=== PATIENT | female | born 1990 | race Caucasian/White ===

== ENCOUNTER → 2016-04-20 | Outpatient (CLI) | payer MEDICARE, MEDICAID ==
[~2016-04-20] MED LIST: TRAZ50TA2 PO; effexor xr PO
--- NOTE | 2016-04-20 21:36 | REP ---
PELVIC ULTRASOUND, 04/20/2016. Comparison: 04/16/2011. Clinical history: Ovarian cyst by history. Transabdominal imaging performed. The patient declined endovaginal probe at this time. On the transabdominal images, the uterus is anteverted. Endometrial stripe appears somewhat thickened, but is homogeneous and has a thickness of 20.8 mm. No fluid in the endometrial cavity or endocervical canal. Right ovary is 3.6 x 2.0 x 3.1 cm with resistive index of 0.48 and normal flow and Doppler waveform, no torsion. The left ovary is 6.1 x 5 x 3.2 cm and shows a 4.6 x 3.1 x 2.9 cm cyst. No adjacent free fluid in the pelvis. Doppler in the left ovary shows resistive index 0.46. Impression: 1. Left ovarian cyst 4.6 x 2.9 x 3.1 cm with both ovaries otherwise unremarkable and with normal blood flow, no torsion. 2. Endometrial stripe thickened up to 20.8 mm, but homogeneous. No uterine mass or contour abnormality. No free fluid. Signed by Ganga Lucas MD 04/21/2016 01:16 P
== END ==
LOC: M RAD 16:45
PROVIDERS: ATTEND Nurse Practitioner Adult Health
DX: N83.209 Unspecified ovarian cyst, unspecified side (principal)

== ENCOUNTER 2016-06-10 01:40 | Emergency (ER) | payer MEDICARE, MEDICAID ==
[~2016-06-10] VITALS: Ht 160 cm; Wt 136.1 kg
[2016-06-10 01:49] VITALS: BP 139/92
[2016-06-10] MEDS ORDERED: IBUP-1114 PO (01:55)
[2016-06-10] MEDS ORDERED: ALEV220C2 PO (01:56)
[2016-06-10] MEDS ORDERED: KETO10TAB PO (06:12)
[2016-06-10] MEDS ORDERED: CLIN1CAP5 PO (06:12)
[2016-06-10] MEDS ORDERED: KETOROLAC 60 MG/2 ML VIAL (J1885) IM ONE (06:15)
[2016-06-10] MEDS ORDERED: KETOROLAC 30 MG/ML VIAL (J1885) As Ordered ONE (06:15)
== END 2016-06-10 06:37 | disposition home or self-care (01) ==
LOC: M ED 03:27
DX: K02.9 Dental caries, unspecified (principal); K08.89 Other specified disorders of teeth and supporting structures; Z88.0 Allergy status to penicillin; Z88.8 Allergy status to other drugs, medicaments and biological substances; Z88.2 Allergy status to sulfonamides
CPT/HCPCS: 96372; 99281; J1885

== ENCOUNTER 2016-09-19 20:04 | Emergency (ER) | payer MEDICARE, MEDICAID ==
[~2016-09-19] VITALS: Ht 157.5 cm; Wt 127.3 kg
[~2016-09-19 20:04] MED LIST changes: +ALEV220C2 PO; +CLIN150C14 PO; +IBUP-1114 PO; +KETO10TAB PO
[2016-09-19 23:42] LABS: MEAN CORPUSCULAR HEMOGLOBIN 29.1 pg (27.0-33.0); MEAN CORPUSCULAR HGB CONC 33.7 g/dl (32.0-36.5); MEAN CORPUSCULAR VOLUME 86.4 fl (80.0-96.0); RED CELL DISTRIBUTION WIDTH 12.9 % (11.5-14.5); WHITE BLOOD COUNT 15.4 K/mm3 (4.0-10.0)
[2016-09-20 00:06] LABS: CONTROL LINE HCG INT CTR LINE PRESENT
--- NOTE | 2016-09-20 01:50 | REPUSA ---
CLINICAL HISTORY: Pelvic pain. TECHNIQUE: Realtime sonographic images were obtained in multiple projections via TA approach. COMMENTS: The uterus is anteverted measuring 9.7x5x6 cm. The endometrial echo pattern is thickened measuring 27 .8 mm. There is no evidence of free fluid within the pelvic cul-de-sac. The right ovary measures 3.3x2x1.9 cm and the left ovary measures 6.1x4.6x6.1 cm with a 4.4 x 3.2 x3. 6 cm cyst.. Both ovaries are free of solid or cystic mass. There is no evidence for abnormal vascularity. IMPRESSION: Thickened endometrium. Left ovarian cyst. No changes noted since the prior exam on 04/21/2016. Thank you for your kind referral of this patient. ADDENDUM: CLINICAL HISTORY: Pelvic pain. TECHNIQUE: Realtime sonographic images were obtained in multiple projections via TA approach. COMMENTS: The uterus is anteverted measuring 9.7x5x6 cm. The endometrial echo pattern is thickened measuring 27.8 mm. There is no evidence of free fluid within the pelvic cul-de-sac. The right ovary measures 3.3x2x1.9 cm and the left ovary measures 6.1x4.6x6.1 cm with a 4.4 x 3.2 x3.6 cm cyst.. Both ovaries are free of solid mass. There is no evidence for abnormal vascularity. IMPRESSION: Thickened endometrium. Left ovarian cyst. No changes noted since the prior exam on 04/21/2016. Thank you for your kind referral of this patient. 1
[2016-09-20] MEDS ORDERED: LEVO0.1T PO (01:53)
[2016-09-20] MEDS ORDERED: NORCOTAB PO (01:53)
[2016-09-20] MEDS ORDERED: NORCO 5/325MG TABLET (BULK FOR ED) PO ONE (02:00)
[2016-09-20 02:26] VITALS: BP 154/72
--- NOTE | 2016-09-21 08:46 | ED PDOC ---
Post-Departure Follow-Up dr huerta and maritza reynolds faxed formal report of pelvis us for fu. Emmett Trujillo MD Sep 21, 2016 08:46
== END 2016-09-20 02:29 | disposition home or self-care (01) ==
LOC: M ED 20:04
DX: N83.292 Other ovarian cyst, left side (principal); N93.8 Other specified abnormal uterine and vaginal bleeding; Z88.0 Allergy status to penicillin; Z88.2 Allergy status to sulfonamides; Z88.8 Allergy status to other drugs, medicaments and biological substances; Z88.1 Allergy status to other antibiotic agents

== ENCOUNTER → 2017-03-04 | Outpatient (CLI) | payer MEDICARE, MEDICAID ==
[2017-03-04 18:55] LABS: BASO % 0.2 % (0.0-1.0); EOS # 0.1 10^3/uL (0.0-0.50); EOS % 1.3 % (0.0-3.0); HEMATOCRIT 41.3 % (36.0-47.0); HEMOGLOBIN 13.8 g/dl (12.0-16.0); IMMATURE GRANULOCYTE % 0.4 % (0-0); LYMPH # 1.8 10^3/uL (1.5-6.5); MEAN CORPUSCULAR HEMOGLOBIN 28.2 pg (27.0-33.0); MEAN CORPUSCULAR HGB CONC 33.4 g/dl (32.0-36.5); MEAN CORPUSCULAR VOLUME 84.3 fl (80.0-96.0); MONO # 0.5 10^3/uL (0.0-0.8); NEUTROPHILS # 6.6 10^3/uL (1.8-7.7); NEUTROPHILS % 73.1 % (36.0-66.0); PLATELET COUNT, AUTOMATED 353 10^3/uL (150-450); RED CELL DISTRIBUTION WIDTH 13.8 % (11.5-14.5); WHITE BLOOD COUNT 9.1 10^3/uL (4.0-10.0)
[2017-03-04 19:09] LABS: ESTIMATED AVERAGE GLUCOSE 114 MG/DL (60-110); HEMOGLOBIN A1c 5.6 %
[2017-03-04 19:13] LABS: ALBUMIN 3.6 GM/DL (3.2-5.2); ALKALINE PHOSPHATASE 54 U/L (45-117); ALT/SGPT 43 U/L (12-78); ANION GAP 10 MEQ/L (8-16); AST/SGOT 29 U/L (7-37); BILIRUBIN,TOTAL 0.4 MG/DL (0.2-1.0); BLOOD UREA NITROGEN 14 MG/DL (7-18); CALCIUM LEVEL 8.8 MG/DL (8.5-10.1); CARBON DIOXIDE LEVEL 25 MEQ/L (21-32); CHLORIDE LEVEL 104 MEQ/L (98-107); CHOLESTEROL LEVEL 188 MG/DL (<200); CREATININE FOR GFR 0.77 MG/DL (0.55-1.02); FREE T4 1.21 NG/DL (0.76-1.46); GLOMERULAR FILTRATION RATE > 60.0 (>60); GLUCOSE, FASTING 134 MG/DL (70-105); HDL CHOLESTEROL 39 MG/DL (>40); LDL CHOLESTEROL 95.4 MG/DL (<100); NON-HDL-C 149 MG/DL; SODIUM LEVEL 139 MEQ/L (136-145); TOTAL PROTEIN 7.6 GM/DL (6.4-8.2); TRIGLYCERIDES LEVEL 268 MG/DL (<150)
[2017-03-06 09:00] LABS: TOTAL 25(OH) VITAMIN D 32.9 NG/ML (30.0-100.0)
== END ==
LOC: M WUC 15:18
DX: N93.9 Abnormal uterine and vaginal bleeding, unspecified (principal); E78.1 Pure hyperglyceridemia; E78.00 Pure hypercholesterolemia, unspecified; E55.9 Vitamin D deficiency, unspecified; Z79.899 Other long term (current) drug therapy
CPT/HCPCS: 84443

== ENCOUNTER → 2017-06-16 | Outpatient (CLI) | payer MEDICARE, MEDICAID ==
[2017-06-16 16:43] LABS: FREE T4 1.06 NG/DL (0.76-1.46)
[2017-06-19 12:24] LABS: PROLACTIN 24.7 NG/ML
[2017-06-20 00:08] LABS: DEHYDROEPIANDROSTERONE SULFATE 251.1 ug/dL (84.8-378.0); TESTOSTERONE FREE (DIRECT) 7.7 pg/mL (0.0-4.2)
== END ==
LOC: M WUC 14:18
DX: N92.1 Excessive and frequent menstruation with irregular cycle (principal)
CPT/HCPCS: 84146

== ENCOUNTER → 2017-08-10 | Outpatient (CLI) | payer MEDICARE, MEDICAID ==
[2017-08-10 20:22] LABS: CHOLESTEROL LEVEL 193 MG/DL (<200); CHOLESTEROL RISK RATIO 6.655 (<5); HDL CHOLESTEROL 29 MG/DL (>40); LDL CHOLESTEROL 96.2 MG/DL (<100); NON-HDL-C 164 MG/DL; TRIGLYCERIDES LEVEL 339 MG/DL (<150)
== END ==
LOC: M WUC 16:36
DX: E78.00 Pure hypercholesterolemia, unspecified (principal); Z79.899 Other long term (current) drug therapy
CPT/HCPCS: 80061

== ENCOUNTER → 2018-08-04 | Outpatient (REF) | payer MEDICARE, MEDICAID ==
[~2018-08-04] MED LIST changes: +HYDR-3715 PO; +LEVO0.1T PO
== END ==
LOC: M LAB REF 13:37
PROVIDERS: ATTEND Physician Assistant
DX: J06.9 Acute upper respiratory infection, unspecified (principal)

== ENCOUNTER → 2018-08-06 | Outpatient (REF) ==
[2018-08-06 10:59] LABS: RUBELLA IgG QUALITATIVE IMMUNE (IMMUNE)
[2018-08-07 11:44] LABS: HERPES ZOSTER, VARICELLA IgG <135 index (Immune >165); RUBEOLA IgG ANTIBODY 96.3 AU/mL (Immune >29.9)
== END ==
LOC: M LAB 09:36
PROVIDERS: ATTEND Nurse Practitioner Adult Health
DX: Z00.00 Encounter for general adult medical examination without abnormal findings (principal)

== ENCOUNTER 2018-08-20 23:34 | Emergency (ER) | payer MEDICARE, MEDICAID ==
[~2018-08-20] VITALS: Ht 157.5 cm; Wt 136.4 kg
[2018-08-21] MEDS ORDERED: GI COCKTAIL 50ML BTL(HYOSCYAMINE/MAALOX/LIDOCAINE VISCOUS)(1:3:1) PO ONE (02:00)
[2018-08-21] MEDS ORDERED: dexameTHASONE 4 MG/ML 1ML VIAL (J1100) PO ONE (02:15)
[2018-08-21] MEDS ORDERED: DECA4TAB PO (02:30)
[2018-08-21] MEDS ORDERED: LIDO1SOL8 PO (02:30)
[2018-08-21 02:40] VITALS: BP 140/79
--- NOTE | 2018-08-21 08:35 | REP ---
Clinical: Neck pain and dysphagia. Technique: AP and lateral soft tissue neck radiographs (three total views) Findings: Visualized osseous structures are intact and relatively normal for age without obvious osseous abnormality. The nasopharyngeal, oral pharyngeal and upper tracheal airway remains patent, midline and normal in appearance. The surrounding soft tissues are unremarkable. No subcutaneous emphysema, soft tissue swelling, or radiodense foreign body appreciated. Impression: Normal soft tissue neck radiographs. Electronically Signed by Fabricio Sidhu MD 08/21/2018 06:17 A
== END 2018-08-21 02:42 | disposition home or self-care (01) ==
LOC: M ED 23:34
DX: J03.91 Acute recurrent tonsillitis, unspecified (principal); Z88.0 Allergy status to penicillin; Z88.2 Allergy status to sulfonamides; Z88.1 Allergy status to other antibiotic agents; Z79.3 Long term (current) use of hormonal contraceptives
CPT/HCPCS: 70360; 87880; 99284; J1100

== ENCOUNTER 2018-11-07 05:05 | Emergency (ER) | payer MEDICARE, MEDICAID ==
[~2018-11-07] VITALS: Ht 157.5 cm; Wt 127.3 kg
[~2018-11-07 05:05] MED LIST changes: +DECA4TAB PO; +LIDO1SOL8 PO
[2018-11-07] MEDS ORDERED: CLIN-30 (05:14)
[2018-11-07] MEDS ORDERED: KETOROLAC 60 MG/2 ML VIAL (J1885) IM ONE (06:45)
[2018-11-07 07:44] VITALS: BP 139/93
[2018-11-07] MEDS ORDERED: KETO10TAB PO (07:45)
== END 2018-11-07 08:17 | disposition home or self-care (01) ==
LOC: M ED 05:05
DX: K04.7 Periapical abscess without sinus (principal); K08.89 Other specified disorders of teeth and supporting structures; S02.5XXA Fracture of tooth (traumatic), initial encounter for closed fracture; X58.XXXA Exposure to other specified factors, initial encounter; Y92.9 Unspecified place or not applicable; Y93.9 Activity, unspecified; Y99.9 Unspecified external cause status; Z79.899 Other long term (current) drug therapy; Z88.0 Allergy status to penicillin; Z88.2 Allergy status to sulfonamides; Z88.1 Allergy status to other antibiotic agents; Z88.8 Allergy status to other drugs, medicaments and biological substances
CPT/HCPCS: 96372; 99283; J1885

== ENCOUNTER 2018-12-13 18:32 | Emergency (ER) | payer MEDICAID, MEDICARE, OTHER ==
[~2018-12-13] VITALS: Ht 160 cm; Wt 127.3 kg
[~2018-12-13 18:32] MED LIST changes: +CLIN-30
[2018-12-13] MEDS ORDERED: IBUPROFEN 600 MG TAB PO ONE (20:00)
[2018-12-13] MEDS ORDERED: IBUP-1022 PO (21:11)
[2018-12-13 21:27] VITALS: BP 115/64
--- NOTE | 2018-12-14 03:12 | REP ---
Clinical: Trauma . Technique: Internal rotation, external rotation, and Y view right shoulder . Findings: No acute fracture or dislocation. The acromioclavicular and glenohumeral joints are intact. No periarticular calcifications or degenerative changes are appreciated. Sub acromial space is normal. Surrounding soft tissues are unremarkable. Impression: Normal right shoulder radiographs. Electronically Signed by Fabricio Sidhu MD 12/14/2018 03:03 A
--- NOTE | 2018-12-14 03:14 | REP ---
Clinical: Trauma. Technique: Frontal view of the chest with four views of the right hemithorax. Findings: Frontal view of the chest demonstrates no acute cardiopulmonary process. Multiple views of the right hemithorax demonstrates no obvious acute rib fracture or pathology. Impression: Normal right rib series Electronically Signed by Fabricio Sidhu MD 12/14/2018 03:05 A
== END 2018-12-13 21:28 | disposition home or self-care (01) ==
LOC: M ED 18:32
DX: S40.011A Contusion of right shoulder, initial encounter (principal); W20.8XXA Other cause of strike by thrown, projected or falling object, initial encounter; Y92.238 Other place in hospital as the place of occurrence of the external cause; Y99.0 Civilian activity done for income or pay; Z88.1 Allergy status to other antibiotic agents; Z88.2 Allergy status to sulfonamides; E28.2 Polycystic ovarian syndrome; Z86.011 Personal history of benign neoplasm of the brain

== ENCOUNTER 2019-01-31 21:12 | Emergency (ER) | payer MEDICARE, MEDICAID ==
[~2019-01-31] VITALS: Ht 160 cm; Wt 140.4 kg
[2019-01-31 21:12] VITALS: BP 140/82
[~2019-01-31 21:12] MED LIST changes: +IBUP-1022 PO
[2019-01-31] MEDS ORDERED: NS 1,000 ML IV ONE (21:45)
[2019-01-31] MEDS ORDERED: ACETAMINOPHEN TAB 650MG DOSE (2X325MG) PO ONE (21:45)
[2019-01-31 22:04] LABS: BASO % 0.4 % (0.0-1.0); EOS % 0.6 % (0.0-3.0); HEMATOCRIT 48.6 % (36.0-47.0); HEMOGLOBIN 15.7 g/dl (12.0-15.5); LYMPH # 1.2 10^3/uL (1.5-5.0); LYMPH % 17.8 % (24.0-44.0); MEAN CORPUSCULAR HEMOGLOBIN 28.1 pg (27.0-33.0); MEAN CORPUSCULAR HGB CONC 32.3 g/dl (32.0-36.5); MEAN CORPUSCULAR VOLUME 86.9 fl (80.0-96.0); MONO # 0.8 10^3/uL (0.0-0.8); MONO % 11.7 % (0.0-5.0); NEUTROPHILS # 4.6 10^3/uL (1.5-8.5); NEUTROPHILS % 69.4 % (36.0-66.0); PLATELET COUNT, AUTOMATED 282 10^3/uL (150-450); RED BLOOD COUNT 5.59 10^6/uL (4.00-5.40); WHITE BLOOD COUNT 6.7 10^3/uL (4.0-10.0)
[2019-01-31 22:24] LABS: BLOOD UREA NITROGEN 12 MG/DL (7-18); CALCIUM LEVEL 9.1 MG/DL (8.5-10.1); CARBON DIOXIDE LEVEL 28 MEQ/L (21-32); CHLORIDE LEVEL 104 MEQ/L (98-107); CREATININE FOR GFR 0.92 MG/DL (0.55-1.30); GLOMERULAR FILTRATION RATE > 60.0 (>60); GLUCOSE, FASTING 102 MG/DL (70-100); POTASSIUM SERUM 3.3 MEQ/L (3.5-5.1); SODIUM LEVEL 139 MEQ/L (136-145)
[2019-01-31 22:38] LABS: INFLUENZA A AMPLIFICATION NEGATIVE (NEGATIVE); INFLUENZA B AMPLIFICATION NEGATIVE (NEGATIVE)
[2019-01-31] MEDS: POTASSIUM CHLORIDE 10 MEQ SR TABLET PO ONE (23:20)
[2019-01-31] MEDS ORDERED: IBUPROFEN 600 MG TAB PO ONE (23:30)
--- NOTE | 2019-01-31 23:54 | REPVR ---
PROCEDURE INFORMATION: Exam: XR Chest, 2 Views Exam date and time: 01/31/2019 11:03 PM Age: 28 years old Clinical history: Other: SOB TECHNIQUE: Imaging protocol: XR of the chest Views: 2 views. COMPARISON: CR Ribs uni W-PA CHEST ONLY RIGHT 2018-12-13 20:32 FINDINGS: Limitations: Limited by patient's body habitus. Lungs: No focal airspace consolidation. Pleural space: Unremarkable. No pleural effusion. No pneumothorax. Heart/Mediastinum: Unremarkable. No cardiomegaly. Bones/joints: Unremarkable. IMPRESSION: No focal airspace consolidation. Electronically signed by: Nathaniel Moses On 01/31/2019 23:53:27 PM
[2019-02-01] MEDS: POTASSIUM CHLORIDE 10 MEQ SR TABLET PO ONE (00:05)
== END 2019-02-01 01:23 | disposition home or self-care (01) ==
LOC: M ED 21:12
DX: R50.9 Fever, unspecified (principal); M79.10 Myalgia, unspecified site; Z88.0 Allergy status to penicillin; Z88.2 Allergy status to sulfonamides; Z88.1 Allergy status to other antibiotic agents

== ENCOUNTER 2019-04-25 23:34 | Emergency (ER) | payer MEDICARE, MEDICAID ==
[~2019-04-25] VITALS: Ht 160 cm; Wt 139.1 kg
[~2019-04-25 23:34] MED LIST changes: -LIDO1SOL8 PO; +LIDO2SOL17 PO
[2019-04-26] MEDS ORDERED: BENZONATATE 100 MG CAP PO ONE (00:15)
[2019-04-26] MEDS ORDERED: ANUSOL HC CREAM 30GM TOP STA (00:16)
[2019-04-26] MEDS ORDERED: HYDROCORTISONE 1% CREAM 30 GM TOP ONE (00:30)
[2019-04-26 01:15] LABS: INFLUENZA A AMPLIFICATION NEGATIVE (NEGATIVE); INFLUENZA B AMPLIFICATION NEGATIVE (NEGATIVE)
[2019-04-26] MEDS ORDERED: TESS100C PO (01:20)
[2019-04-26 01:28] VITALS: BP 131/75
--- NOTE | 2019-04-26 07:51 | REP ---
PA and lateral chest: Comparison is 01/31/2019. The lung jiménez are clear. The cardiac size is normal. The lorenzo, mediastinum, and skeletal structures are unremarkable. Impression: Negative PA and lateral chest. There is no interval change. Electronically Signed by Ridge Pulliam MD 04/26/2019 07:42 A
== END 2019-04-26 01:29 | disposition home or self-care (01) ==
LOC: M ED 23:34
DX: R05 Cough (principal); R09.89 Other specified symptoms and signs involving the circulatory and respiratory systems; L29.9 Pruritus, unspecified; Z88.0 Allergy status to penicillin; Z88.2 Allergy status to sulfonamides; Z88.1 Allergy status to other antibiotic agents

== ENCOUNTER 2019-05-16 23:28 | Emergency (ER) | payer MEDICARE, MEDICAID ==
[~2019-05-16] VITALS: Ht 160 cm; Wt 140.9 kg
[~2019-05-16 23:28] MED LIST changes: +TESS100C PO
[2019-05-17] MEDS ORDERED: BENZOCAINE 20% GEL 9GM TUBE (ANBESOL MAX STRENGTH) TOP ONE
[2019-05-17] MEDS ORDERED: CLIN150C14 PO (00:37)
[2019-05-17 00:54] VITALS: BP 137/90
--- NOTE | 2019-05-17 08:02 | REP ---
Mandible series: Four views. History: Lower jaw pain. Comparison soft tissue neck radiographs August 21, 2018. Findings: There is no evidence of mandibular fracture or bony destructive lesion. Impression: Negative radiographs of the mandible. 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 Electronically Signed by Brandin Downs MD 05/17/2019 07:54 A
== END 2019-05-17 00:55 | disposition home or self-care (01) ==
LOC: M ED 23:28
DX: R68.84 Jaw pain (principal); K02.9 Dental caries, unspecified; K08.89 Other specified disorders of teeth and supporting structures; K05.30 Chronic periodontitis, unspecified; S00.83XA Contusion of other part of head, initial encounter; W50.0XXA Accidental hit or strike by another person, initial encounter; Y92.9 Unspecified place or not applicable; Y93.9 Activity, unspecified; Y99.9 Unspecified external cause status; E28.2 Polycystic ovarian syndrome; Z98.818 Other dental procedure status; Z88.0 Allergy status to penicillin; Z88.2 Allergy status to sulfonamides; Z88.1 Allergy status to other antibiotic agents; Z88.8 Allergy status to other drugs, medicaments and biological substances

== ENCOUNTER 2019-10-16 23:37 | Emergency (ER) | payer MEDICARE, MEDICAID ==
[~2019-10-16] VITALS: Ht 160 cm; Wt 138.0 kg
[2019-10-16] MEDS ORDERED: CLIN300C5 (23:47)
[2019-10-16] MEDS ORDERED: IBUP200T45 PO (23:47)
[2019-10-16] MEDS ORDERED: NAPR220C23 PO (23:47)
[2019-10-17] MEDS ORDERED: KETOROLAC 30 MG/ML 1ML VIAL IV ONE (01:15)
[2019-10-17] MEDS ORDERED: ISOVUE-370 76% 100ML VIAL As Ordered ONE (01:16)
[2019-10-17] MEDS ORDERED: KETOROLAC 30 MG/ML 1ML VIAL As Ordered ONE (01:18)
[2019-10-17 01:37] LABS: BASO % 0.5 % (0.0-1.0); EOS # 0.2 10^3/uL (0.0-0.5); EOS % 2.4 % (0.0-3.0); HEMATOCRIT 43.7 % (36.0-47.0); HEMOGLOBIN 14.1 g/dl (12.0-15.5); LYMPH # 2.8 10^3/uL (1.5-5.0); LYMPH % 31.5 % (24.0-44.0); MEAN CORPUSCULAR HGB CONC 32.3 g/dl (32.0-36.5); MEAN CORPUSCULAR VOLUME 86.7 fl (80.0-96.0); MONO # 0.8 10^3/uL (0.0-0.8); MONO % 9.4 % (0.0-5.0); PLATELET COUNT, AUTOMATED 324 10^3/uL (150-450); RED BLOOD COUNT 5.04 10^6/uL (4.00-5.40); WHITE BLOOD COUNT 8.9 10^3/uL (4.0-10.0)
[2019-10-17 01:59] LABS: HCG, SERUM QUALITATIVE NEGATIVE (NEGATIVE)
[2019-10-17 02:03] LABS: ALBUMIN 3.9 GM/DL (3.2-5.2); ALT/SGPT 29 U/L (12-78); BILIRUBIN,DIRECT < 0.1 MG/DL (0.0-0.2); BILIRUBIN,TOTAL 0.2 MG/DL (0.2-1.0); BLOOD UREA NITROGEN 19 MG/DL (7-18); C REACTIVE PROTEIN QUANTITATIV 4.69 MG/DL (0.00-0.30); CALCIUM LEVEL 9.2 MG/DL (8.5-10.1); CARBON DIOXIDE LEVEL 28 MEQ/L (21-32); CHLORIDE LEVEL 103 MEQ/L (98-107); GLOMERULAR FILTRATION RATE > 60.0 (>60); GLUCOSE, FASTING 89 MG/DL (70-100); SODIUM LEVEL 135 MEQ/L (136-145); TOTAL PROTEIN 8.3 GM/DL (6.4-8.2)
[2019-10-17 02:11] LABS: ERYTHROCYTE SEDIMENTATION RATE 15 mm/hr (0-20)
[2019-10-17] MEDS ORDERED: diphenhydrAMINE 50MG/ML VIAL (J1200) IV ONE (02:30)
--- NOTE | 2019-10-17 02:55 | REPVR ---
PROCEDURE INFORMATION: Exam: CT Maxillofacial With Contrast Exam date and time: 10/17/2019 2:20 AM Age: 29 years old Clinical indication: Mass, lump, or swelling; Other: Facial; Patient HX: Known dental issues right; Additional info: Right face swelling TECHNIQUE: Imaging protocol: Computed tomography images of the face with intravenous contrast. Radiation optimization: All CT scans at this facility use at least one of these dose optimization techniques: automated exposure control; mA and/or kV adjustment per patient size (includes targeted exams where dose is matched to clinical indication); or iterative reconstruction. Contrast material: ISO; Contrast volume: 75 ml; Contrast route: INTRAVENOUS (IV); COMPARISON: CR Mandible 05/17/2019 12:00 AM FINDINGS: Orbits: Orbits are normal. Globes are unremarkable. Bones/joints: No acute fracture. Sinuses: Mild right maxillary sinus mucosal thickening inferiorly. Dental: Absence of the crown of tooth # 2 with periodontal disease involving the root. There is a defect extending through the anterior maxilla through the region of tooth # 7. Soft tissues: Slight subcutaneous edema of the right cheek. IMPRESSION: 1. Slight subcutaneous edema of the right cheek. 2. Mild right maxillary sinus disease. 3. Caries and periodontal disease involving tooth # 2 and defect in the anterior maxilla to the right of midline. 4. Otherwise negative CT facial bones. Electronically signed by: Hugo Polo On 10/17/2019 02:55:42 AM
[2019-10-17 03:13] VITALS: BP 158/84
== END 2019-10-17 03:14 | disposition home or self-care (01) ==
LOC: M ED 23:37
DX: K02.9 Dental caries, unspecified (principal); Z88.0 Allergy status to penicillin; Z88.2 Allergy status to sulfonamides; Z88.1 Allergy status to other antibiotic agents
CPT/HCPCS: 70487; 80048; 80076; 83605; 84703; 85025; 85652; 86140; 96374; 96375; 99283; J1200; J1885; Q9967

== ENCOUNTER 2020-05-11 22:47 | Emergency (ER) | payer MEDICAID, MEDICARE, OTHER ==
[~2020-05-11] VITALS: Ht 160 cm; Wt 139.7 kg
[~2020-05-11 22:47] MED LIST changes: -CLIN150C14 PO; +CLIN150C15 PO; +CLIN300C6; +IBUP200T45 PO; +NAPR220C23 PO
[2020-05-12] MEDS ORDERED: RALTEGRAVIR 400 MG TAB (ISENTRESS) PO SCH
[2020-05-12] MEDS ORDERED: TRUVADA 200MG/300MG TABLET PO SCH
[2020-05-12] MEDS ORDERED: EXPOSURE KIT-ADULT 7 DAY SUPPLY PO ONE (00:55)
[2020-05-12 01:17] LABS: BASO # 0.1 10^3/uL (0.0-0.2); BASO % 0.4 % (0.0-1.0); EOS # 0.1 10^3/uL (0.0-0.5); EOS % 1.2 % (0.0-3.0); HEMATOCRIT 43.9 % (36.0-47.0); HEMOGLOBIN 14.2 g/dl (12.0-15.5); LYMPH # 3.8 10^3/uL (1.5-5.0); LYMPH % 33.6 % (24.0-44.0); MEAN CORPUSCULAR HEMOGLOBIN 28.1 pg (27.0-33.0); MEAN CORPUSCULAR HGB CONC 32.3 g/dl (32.0-36.5); MEAN CORPUSCULAR VOLUME 86.8 fl (80.0-96.0); MONO # 0.8 10^3/uL (0.0-0.8); MONO % 6.8 % (2.0-8.0); NEUTROPHILS # 6.5 10^3/uL (1.5-8.5); NEUTROPHILS % 57.7 % (36.0-66.0); PLATELET COUNT, AUTOMATED 350 10^3/uL (150-450); RED BLOOD COUNT 5.06 10^6/uL (4.00-5.40); WHITE BLOOD COUNT 11.3 10^3/uL (4.0-10.0)
[2020-05-12] MEDS ORDERED: TRUVTAB PO (01:26)
[2020-05-12] MEDS ORDERED: RALT40TA PO (01:26)
[2020-05-12 01:48] LABS: HCG, SERUM QUALITATIVE NEGATIVE (NEGATIVE)
[2020-05-12 01:52] LABS: ALBUMIN 3.9 GM/DL (3.2-5.2); ALT/SGPT 26 U/L (12-78); BILIRUBIN,TOTAL 0.2 MG/DL (0.2-1.0); BLOOD UREA NITROGEN 14 MG/DL (7-18); CALCIUM LEVEL 9.4 MG/DL (8.5-10.1); CARBON DIOXIDE LEVEL 29 MEQ/L (21-32); CHLORIDE LEVEL 105 MEQ/L (98-107); CREATININE FOR GFR 0.69 MG/DL (0.55-1.30); GLOMERULAR FILTRATION RATE > 60.0 (>60); GLUCOSE, FASTING 84 MG/DL (70-100); POTASSIUM SERUM 3.8 MEQ/L (3.5-5.1); SODIUM LEVEL 138 MEQ/L (136-145); TOTAL PROTEIN 8.2 GM/DL (6.4-8.2)
[2020-05-12] MEDS ORDERED: TRUVADA 200MG/300MG TABLET PO ONE (02:00)
[2020-05-12] MEDS ORDERED: RALTEGRAVIR 400 MG TAB (ISENTRESS) PO ONE (02:00)
[2020-05-12 02:40] VITALS: BP 160/91
[2020-05-12 10:55] LABS: HEPATITIS B SURFACE ANTIBODY NEGATIVE (POSITIVE)
[2020-05-12 11:05] LABS: HEPATITIS B SURFACE ANTIGEN NEGATIVE (NEGATIVE)
[2020-05-12 11:34] LABS: HEPATITIS C VIRUS ABY INDEX < 0.0 INDEX (<0.8); HIV SCREEN CENTAUR EXPOSED NEGATIVE (NEGATIVE)
== END 2020-05-12 02:42 | disposition home or self-care (01) ==
LOC: M ED 22:47
DX: Z77.21 Contact with and (suspected) exposure to potentially hazardous body fluids (principal); S61.232A Puncture wound without foreign body of right middle finger without damage to nail, initial encounter; W27.3XXA Contact with needle (sewing), initial encounter; Y92.89 Other specified places as the place of occurrence of the external cause; Y93.89 Activity, other specified; Y99.0 Civilian activity done for income or pay; Z88.2 Allergy status to sulfonamides; Z88.0 Allergy status to penicillin; Z88.8 Allergy status to other drugs, medicaments and biological substances

== ENCOUNTER 2020-07-30 02:14 | Emergency (ER) | payer MEDICARE, MEDICAID, OTHER ==
[~2020-07-30] VITALS: Ht 157.5 cm; Wt 143.2 kg
[~2020-07-30 02:14] MED LIST changes: +EMTR1TAB16 PO; +RALT40TA PO
[2020-07-30 02:16] VITALS: BP 132/77
[2020-07-30 04:38] LABS: BASO % 0.4 % (0.0-1.0); EOS # 0.1 10^3/uL (0.0-0.5); EOS % 1.4 % (0.0-3.0); HEMATOCRIT 42.6 % (36.0-47.0); HEMOGLOBIN 13.8 g/dl (12.0-15.5); LYMPH % 30.3 % (24.0-44.0); MEAN CORPUSCULAR HGB CONC 32.4 g/dl (32.0-36.5); MEAN CORPUSCULAR VOLUME 86.6 fl (80.0-96.0); MONO # 0.9 10^3/uL (0.0-0.8); MONO % 9.3 % (2.0-8.0); NEUTROPHILS # 5.8 10^3/uL (1.5-8.5); NEUTROPHILS % 58.2 % (36.0-66.0); PLATELET COUNT, AUTOMATED 303 10^3/uL (150-450); RED BLOOD COUNT 4.92 10^6/uL (4.00-5.40)
[2020-07-30 05:14] LABS: ALBUMIN 3.4 GM/DL (3.2-5.2); ALT/SGPT 27 U/L (12-78); BILIRUBIN,DIRECT 0.1 MG/DL (0.0-0.2); BILIRUBIN,TOTAL 0.2 MG/DL (0.2-1.0); BLOOD UREA NITROGEN 14 MG/DL (7-18); CALCIUM LEVEL 9.2 MG/DL (8.5-10.1); CARBON DIOXIDE LEVEL 27 MEQ/L (21-32); CHLORIDE LEVEL 107 MEQ/L (98-107); CREATININE FOR GFR 0.59 MG/DL (0.55-1.30); GLOMERULAR FILTRATION RATE > 60.0 (>60); GLUCOSE, FASTING 131 MG/DL (70-100); LIPASE 173 U/L (73-393); POTASSIUM SERUM 3.8 MEQ/L (3.5-5.1); SODIUM LEVEL 141 MEQ/L (136-145); TOTAL PROTEIN 7.2 GM/DL (6.4-8.2)
[2020-07-30 05:15] LABS: HCG, SERUM QUALITATIVE NEGATIVE (NEGATIVE)
== END 2020-07-30 05:54 | disposition left against medical advice (07) ==
LOC: M ED 02:14
DX: R11.2 Nausea with vomiting, unspecified (principal); Z88.0 Allergy status to penicillin; Z88.1 Allergy status to other antibiotic agents; Z88.2 Allergy status to sulfonamides; Z88.8 Allergy status to other drugs, medicaments and biological substances

== ENCOUNTER 2020-08-03 22:24 | Emergency (ER) | payer MEDICARE, MEDICAID ==
[~2020-08-03] VITALS: Ht 160 cm; Wt 140.4 kg
[2020-08-04 02:51] LABS: HEMATOCRIT 44.9 % (36.0-47.0); HEMOGLOBIN 14.9 g/dl (12.0-15.5); MEAN CORPUSCULAR HEMOGLOBIN 28.3 pg (27.0-33.0); MEAN CORPUSCULAR HGB CONC 33.2 g/dl (32.0-36.5); MEAN CORPUSCULAR VOLUME 85.2 fl (80.0-96.0); PLATELET COUNT, AUTOMATED 344 10^3/uL (150-450); RED BLOOD COUNT 5.27 10^6/uL (4.00-5.40)
[2020-08-04 03:17] LABS: AMPHETAMINES LEVEL URINE NEGATIVE (NEGATIVE); BARBITURATES URINE NEGATIVE (NEGATIVE); BENZODIAZEPINES URINE NEGATIVE (NEGATIVE); CANNABINOIDS URINE NEGATIVE (NEGATIVE); COCAINE METABOLITE URINE NEGATIVE (NEGATIVE); METHADONE URINE NEGATIVE (NEGATIVE); OPIATES URINE NEGATIVE (NEGATIVE); PHENCYCLIDINE URINE NEGATIVE (NEGATIVE)
[2020-08-04 03:27] LABS: HCG, SERUM QUALITATIVE NEGATIVE (NEGATIVE)
[2020-08-04 03:35] LABS: ACETAMINOPHEN LEVEL < 2.0 UG/ML (10.0-30.0); ALBUMIN 3.6 GM/DL (3.2-5.2); ALT/SGPT 26 U/L (12-78); BILIRUBIN,DIRECT < 0.1 MG/DL (0.0-0.2); BILIRUBIN,TOTAL 0.3 MG/DL (0.2-1.0); BLOOD UREA NITROGEN 17 MG/DL (7-18); CALCIUM LEVEL 9.5 MG/DL (8.5-10.1); CARBON DIOXIDE LEVEL 25 MEQ/L (21-32); CHLORIDE LEVEL 104 MEQ/L (98-107); CREATININE FOR GFR 0.69 MG/DL (0.55-1.30); ETHYL ALCOHOL (ETHANOL) 0.003 % (0.000-0.010); GLOMERULAR FILTRATION RATE > 60.0 (>60); GLUCOSE, FASTING 90 MG/DL (70-100); POTASSIUM SERUM 3.8 MEQ/L (3.5-5.1); SALICYLATE LEVEL < 1.7 MG/DL (5.0-30.0); SODIUM LEVEL 138 MEQ/L (136-145); TOTAL PROTEIN 8.1 GM/DL (6.4-8.2)
[2020-08-04 12:06] VITALS: BP 136/92
--- NOTE | 2020-08-04 17:31 | ECGEPIP ---
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
== END 2020-08-04 12:30 | disposition home or self-care (01) ==
LOC: M ED 22:24
DX: F32.9 Major depressive disorder, single episode, unspecified (principal); Z88.0 Allergy status to penicillin; Z88.1 Allergy status to other antibiotic agents; Z88.2 Allergy status to sulfonamides; Z88.8 Allergy status to other drugs, medicaments and biological substances

== ENCOUNTER 2020-08-15 02:50 | Emergency (ER) | payer MEDICARE, MEDICAID ==
[~2020-08-15] VITALS: Ht 160 cm; Wt 141.8 kg
[2020-08-15 03:56] LABS: HEMATOCRIT 42.8 % (36.0-47.0); HEMOGLOBIN 14.1 g/dl (12.0-15.5); MEAN CORPUSCULAR HEMOGLOBIN 28.2 pg (27.0-33.0); MEAN CORPUSCULAR HGB CONC 32.9 g/dl (32.0-36.5); MEAN CORPUSCULAR VOLUME 85.6 fl (80.0-96.0); PLATELET COUNT, AUTOMATED 335 10^3/uL (150-450); WHITE BLOOD COUNT 12.7 10^3/uL (4.0-10.0)
[2020-08-15 04:24] LABS: AMPHETAMINES LEVEL URINE NEGATIVE (NEGATIVE); BARBITURATES URINE NEGATIVE (NEGATIVE); BENZODIAZEPINES URINE NEGATIVE (NEGATIVE); CANNABINOIDS URINE NEGATIVE (NEGATIVE); COCAINE METABOLITE URINE NEGATIVE (NEGATIVE); METHADONE URINE NEGATIVE (NEGATIVE); OPIATES URINE NEGATIVE (NEGATIVE); PHENCYCLIDINE URINE NEGATIVE (NEGATIVE)
[2020-08-15 04:25] LABS: HCG, SERUM QUALITATIVE NEGATIVE (NEGATIVE)
[2020-08-15 04:35] LABS: ACETAMINOPHEN LEVEL < 2.0 UG/ML (10.0-30.0); ALBUMIN 3.6 GM/DL (3.2-5.2); ALT/SGPT 28 U/L (12-78); BILIRUBIN,DIRECT < 0.1 MG/DL (0.0-0.2); BILIRUBIN,TOTAL 0.2 MG/DL (0.2-1.0); BLOOD UREA NITROGEN 14 MG/DL (7-18); CALCIUM LEVEL 8.6 MG/DL (8.5-10.1); CARBON DIOXIDE LEVEL 25 MEQ/L (21-32); CHLORIDE LEVEL 107 MEQ/L (98-107); CREATININE FOR GFR 0.69 MG/DL (0.55-1.30); ETHYL ALCOHOL (ETHANOL) < 0.003 % (0.000-0.010); GLOMERULAR FILTRATION RATE > 60.0 (>60); GLUCOSE, FASTING 105 MG/DL (70-100); POTASSIUM SERUM 3.5 MEQ/L (3.5-5.1); SALICYLATE LEVEL < 1.7 MG/DL (5.0-30.0); SODIUM LEVEL 138 MEQ/L (136-145); TOTAL PROTEIN 7.9 GM/DL (6.4-8.2)
[2020-08-15] MEDS ORDERED: ACETAMINOPHEN TAB 650MG DOSE (2X325MG) PO ONE (07:45)
[2020-08-15] MEDS ORDERED: LIDOCAINE W/EPINEPHRINE 1% 20ML VIAL SC ONE (09:00)
[2020-08-15] MEDS ORDERED: BACITRACIN OINTMENT 30GM TUBE TOP ONE (09:15)
[2020-08-15 10:14] LABS: RSV AMPLIFICATION NEGATIVE (NEGATIVE)
[2020-08-15 11:51] VITALS: BP 133/89
--- NOTE | 2020-08-16 14:18 | ECGEPIP ---
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
== END 2020-08-15 11:55 ==
LOC: M ED 02:50
DX: S51.812A Laceration without foreign body of left forearm, initial encounter (principal); X78.9XXA Intentional self-harm by unspecified sharp object, initial encounter; Y92.9 Unspecified place or not applicable; Y93.9 Activity, unspecified; Y99.9 Unspecified external cause status; F33.9 Major depressive disorder, recurrent, unspecified; Z88.0 Allergy status to penicillin; Z88.1 Allergy status to other antibiotic agents; Z88.2 Allergy status to sulfonamides; Z88.8 Allergy status to other drugs, medicaments and biological substances

== ENCOUNTER 2020-10-16 20:38 | Emergency (ER) | payer MEDICARE, MEDICAID ==
[~2020-10-16] VITALS: Ht 160 cm; Wt 140.8 kg
[~2020-10-16 20:38] MED LIST changes: -CLIN150C15 PO; +CLIN150C17 PO
[2020-10-16 20:39] VITALS: BP 138/80
== END 2020-10-16 23:46 | disposition left against medical advice (07) ==
LOC: M ED 20:38
DX: Z53.21 Procedure and treatment not carried out due to patient leaving prior to being seen by health care provider (principal)

== ENCOUNTER 2021-10-18 01:42 | Emergency (ER) | payer MEDICARE, MEDICAID ==
[~2021-10-18] VITALS: Ht 160 cm; Wt 154.0 kg
[~2021-10-18 01:42] MED LIST changes: +CLIN-250; -CLIN300C6; -IBUP200T45 PO; +IBUP200T46 PO
[2021-10-18 01:44] VITALS: BP 130/90
== END 2021-10-18 03:30 | disposition left against medical advice (07) ==
LOC: M ED 01:42
DX: Z53.21 Procedure and treatment not carried out due to patient leaving prior to being seen by health care provider (principal)

== ENCOUNTER 2022-03-21 19:35 | Emergency (ER) | payer MEDICARE, MEDICAID ==
[~2022-03-21] VITALS: Ht 160 cm; Wt 150.0 kg
[2022-03-21 23:27] VITALS: BP 138/79
== END 2022-03-22 03:19 | disposition left against medical advice (07) ==
LOC: M ED 19:35
DX: Z53.21 Procedure and treatment not carried out due to patient leaving prior to being seen by health care provider (principal)

== ENCOUNTER → 2022-04-06 | Outpatient (CLI) | payer MEDICARE, MEDICAID ==
[~2022-04-06] MED LIST changes: +LIDO15SO4 PO; -LIDO2SOL17 PO
== END ==
LOC: M RAD 14:02
PROVIDERS: ATTEND Physician Assistant Medical
DX: E01.0 Iodine-deficiency related diffuse (endemic) goiter (principal)

== ENCOUNTER → 2022-05-06 | Outpatient (CLI) | payer MEDICARE, MEDICAID ==
[2022-05-06 17:10] LABS: BASO % 0.5 % (0.0-1.0); EOS # 0.1 10^3/uL (0.0-0.5); EOS % 1.6 % (0.0-3.0); HEMATOCRIT 43.5 % (36.0-47.0); HEMOGLOBIN 13.7 g/dl (12.0-15.5); LYMPH # 2.7 10^3/uL (1.5-5.0); LYMPH % 32.5 % (24.0-44.0); MEAN CORPUSCULAR HEMOGLOBIN 25.6 pg (27.0-33.0); MEAN CORPUSCULAR HGB CONC 31.5 g/dl (32.0-36.5); MEAN CORPUSCULAR VOLUME 81.2 fl (80.0-96.0); MONO # 0.7 10^3/uL (0.0-0.8); MONO % 8.3 % (2.0-8.0); NEUTROPHILS # 4.7 10^3/uL (1.5-8.5); NEUTROPHILS % 56.9 % (36.0-66.0); PLATELET COUNT, AUTOMATED 370 10^3/uL (150-450); RED BLOOD COUNT 5.36 10^6/uL (4.00-5.40); WHITE BLOOD COUNT 8.2 10^3/uL (4.0-10.0)
[2022-05-06 17:47] LABS: ALBUMIN 3.4 G/DL (3.2-5.2); ALKALINE PHOSPHATASE 76 U/L (46-116); ALT/SGPT 52 U/L (7.0-40); AST/SGOT 35 U/L (<34); BILIRUBIN,TOTAL 0.5 MG/DL (0.3-1.2); BLOOD UREA NITROGEN 14 MG/DL (9-23); CALCIUM LEVEL 9.4 MG/DL (8.5-10.1); CARBON DIOXIDE LEVEL 29 MMOL/L (20-31); CHLORIDE LEVEL 102 MMOL/L (98-107); CHOLESTEROL LEVEL 207 MG/DL (<200); CHOLESTEROL RISK RATIO 5.47 (<5); CREATININE FOR GFR 0.69 MG/DL (0.55-1.30); FREE T4 0.98 NG/DL (0.89-1.76); GLOMERULAR FILTRATION RATE > 60.0 (>60); GLUCOSE, FASTING 90 MG/DL (60-100); HDL CHOLESTEROL 37.8 MG/DL (>40); LDL CHOLESTEROL 126.2 MG/DL (<100); NON-HDL-C 169.2 MG/DL; POTASSIUM SERUM 4.2 MMOL/L (3.5-5.1); SODIUM LEVEL 137 MMOL/L (136-145); THYROID STIMULATING HORMONE 2.634 uIU/ML (0.55-4.78); TOTAL PROTEIN 7.4 G/DL (5.7-8.2); TRIGLYCERIDES LEVEL 215 MG/DL (<150)
[2022-05-06 17:51] LABS: HEMOGLOBIN A1c 5.8 % (4.0-6.0)
== END ==
LOC: M PLALAB 15:58
PROVIDERS: ATTEND Physician Assistant Medical
DX: E04.1 Nontoxic single thyroid nodule (principal); Z13.0 Encounter for screening for diseases of the blood and blood-forming organs and certain disorders involving the immune mechanism; E78.00 Pure hypercholesterolemia, unspecified; Z83.3 Family history of diabetes mellitus; R63.5 Abnormal weight gain

== ENCOUNTER → 2022-06-23 | Outpatient (REF) ==
[~2022-06-23] MED LIST changes: +LIDO15SO PO; -LIDO15SO4 PO
[2022-06-23 16:05] LABS: RSV AMPLIFICATION NEGATIVE (NEGATIVE)
== END ==
LOC: M EMP 15:08
PROVIDERS: ATTEND Family Medicine
DX: Z20.828 Contact with and (suspected) exposure to other viral communicable diseases (principal)

== ENCOUNTER 2022-06-25 19:29 | Emergency (ER) | payer MEDICARE, MEDICAID ==
[~2022-06-25] VITALS: Ht 160 cm; Wt 153.8 kg
[2022-06-25 20:33] LABS: BASO % 0.3 % (0.0-1.0); EOS # 0.1 10^3/uL (0.0-0.5); EOS % 1.1 % (0.0-3.0); HEMOGLOBIN 14.5 g/dl (12.0-15.5); LYMPH % 30.4 % (24.0-44.0); MEAN CORPUSCULAR HEMOGLOBIN 26.4 pg (27.0-33.0); MEAN CORPUSCULAR VOLUME 80.1 fl (80.0-96.0); MONO # 0.6 10^3/uL (0.0-0.8); MONO % 6.3 % (2.0-8.0); NEUTROPHILS # 6.1 10^3/uL (1.5-8.5); NEUTROPHILS % 61.5 % (36.0-66.0); PLATELET COUNT, AUTOMATED 377 10^3/uL (150-450); RED BLOOD COUNT 5.49 10^6/uL (4.00-5.40); WHITE BLOOD COUNT 9.9 10^3/uL (4.0-10.0)
[2022-06-25 20:56] LABS: CK-MB VALUE MASS < 1.0 NG/ML (<3.6); LIPASE 43 U/L (12-53)
[2022-06-25 20:58] LABS: ALBUMIN 3.6 G/DL (3.2-5.2); ALKALINE PHOSPHATASE 79 U/L (46-116); ALT/SGPT 52 U/L (7.0-40); AST/SGOT 32 U/L (<34); BILIRUBIN,DIRECT 0.1 MG/DL (<0.4); BILIRUBIN,TOTAL 0.4 MG/DL (0.3-1.2); BLOOD UREA NITROGEN 14 MG/DL (9-23); CALCIUM LEVEL 9.1 MG/DL (8.5-10.1); CARBON DIOXIDE LEVEL 28 MMOL/L (20-31); CHLORIDE LEVEL 104 MMOL/L (98-107); CPK CREATINE PHOSPHOKINASE 101 U/L (34-145); GLOMERULAR FILTRATION RATE > 60.0 (>60); GLUCOSE, FASTING 88 MG/DL (60-100); MB/CK RELATIVE INDEX 0.99 (< OR =4); SODIUM LEVEL 138 MMOL/L (136-145); TOTAL PROTEIN 7.8 G/DL (5.7-8.2)
[2022-06-25 21:00] LABS: FREE T4 0.96 NG/DL (0.89-1.76); THYROID STIMULATING HORMONE 1.778 uIU/ML (0.55-4.78)
[2022-06-25] MEDS ORDERED: ISOVUE-370 76% 100ML VIAL As Ordered ONE (21:02)
[2022-06-25 22:46] VITALS: BP 135/92
== END 2022-06-25 22:53 | disposition home or self-care (01) ==
LOC: M ED 19:29
DX: R07.9 Chest pain, unspecified (principal); E04.1 Nontoxic single thyroid nodule; E28.2 Polycystic ovarian syndrome; D49.6 Neoplasm of unspecified behavior of brain; Z88.0 Allergy status to penicillin; Z88.1 Allergy status to other antibiotic agents; Z88.2 Allergy status to sulfonamides
CPT/HCPCS: 36415; 70491; 71045; 80048; 80076; 82550; 82553; 83690; 84439; 84443; 84484; 85025; 93005; 99284; Q9967

== ENCOUNTER 2022-08-14 21:22 | Emergency (ER) | payer MEDICARE, MEDICAID ==
[~2022-08-14] VITALS: Ht 160 cm; Wt 155.9 kg
[2022-08-14 21:23] VITALS: TEMP 97.6
[2022-08-14 22:24] LABS: BASO % 0.5 % (0.0-1.0); EOS # 0.1 10^3/uL (0.0-0.5); EOS % 1.6 % (0.0-3.0); HEMATOCRIT 44.4 % (36.0-47.0); HEMOGLOBIN 14.7 g/dl (12.0-15.5); LYMPH # 2.8 10^3/uL (1.5-5.0); LYMPH % 35.1 % (24.0-44.0); MEAN CORPUSCULAR HEMOGLOBIN 27.1 pg (27.0-33.0); MEAN CORPUSCULAR HGB CONC 33.1 g/dl (32.0-36.5); MEAN CORPUSCULAR VOLUME 81.9 fl (80.0-96.0); MONO # 0.8 10^3/uL (0.0-0.8); MONO % 10.2 % (2.0-8.0); NEUTROPHILS # 4.2 10^3/uL (1.5-8.5); NEUTROPHILS % 52.5 % (36.0-66.0); PLATELET COUNT, AUTOMATED 339 10^3/uL (150-450); RED BLOOD COUNT 5.42 10^6/uL (4.00-5.40)
[2022-08-14 22:35] LABS: INR 0.99; PROTHROMBIN TIME 13.3 SECONDS (12.5-14.5)
[2022-08-14 22:41] LABS: PARTIAL THROMBOPLASTIN TIME 31.6 SECONDS (24.8-34.2)
[2022-08-14 22:51] LABS: FREE T4 1.08 NG/DL (0.89-1.76); THYROID STIMULATING HORMONE 1.478 uIU/ML (0.55-4.78)
[2022-08-14 22:52] LABS: ALBUMIN 3.8 G/DL (3.2-5.2); ALKALINE PHOSPHATASE 77 U/L (46-116); ALT/SGPT 47 U/L (7.0-40); AST/SGOT 61 U/L (<34); BILIRUBIN,DIRECT < 0.1 MG/DL (<0.4); BILIRUBIN,TOTAL 0.3 MG/DL (0.3-1.2); BLOOD UREA NITROGEN 14 MG/DL (9-23); CALCIUM LEVEL 9.2 MG/DL (8.5-10.1); CARBON DIOXIDE LEVEL 26 MMOL/L (20-31); CHLORIDE LEVEL 103 MMOL/L (98-107); CK-MB VALUE MASS 1.9 NG/ML (<3.6); CPK CREATINE PHOSPHOKINASE 142 U/L (34-145); CREATININE FOR GFR 0.62 MG/DL (0.55-1.30); GLOMERULAR FILTRATION RATE > 60.0 (>60); GLUCOSE, FASTING 91 MG/DL (60-100); MAGNESIUM LEVEL 1.9 MG/DL (1.8-2.4); MB/CK RELATIVE INDEX 1.33 (< OR =4); PHOSPHORUS LEVEL 4.3 MG/DL (2.5-4.9); POTASSIUM SERUM 4.7 MMOL/L (3.5-5.1); SODIUM LEVEL 138 MMOL/L (136-145); TOTAL PROTEIN 8.1 G/DL (5.7-8.2)
[2022-08-14] MEDS ORDERED: ISOVUE-370 76% 100ML VIAL As Ordered ONE (23:40)
[2022-08-15 01:15] LABS: CK-MB VALUE MASS < 1.0 NG/ML (<3.6)
[2022-08-15 01:17] LABS: CPK CREATINE PHOSPHOKINASE 116 U/L (34-145); MB/CK RELATIVE INDEX 0.86 (< OR =4)
[2022-08-15 01:45] VITALS: BP 125/66
[2022-08-15 01:52] VITALS: O2SAT 98
== END 2022-08-15 02:53 | disposition home or self-care (01) ==
LOC: M ED 21:22
DX: R00.2 Palpitations (principal); D44.0 Neoplasm of uncertain behavior of thyroid gland; F41.9 Anxiety disorder, unspecified; Z88.0 Allergy status to penicillin; Z88.1 Allergy status to other antibiotic agents; Z88.2 Allergy status to sulfonamides; Z88.8 Allergy status to other drugs, medicaments and biological substances
CPT/HCPCS: 36415; 71046; 71275; 80048; 80076; 82550; 82553; 83735; 84100; 84439; 84443; 84484; 85025; 85610; 85730; 86618; 93005; 93041; 93970; 94760; 99285; Q9967

== ENCOUNTER 2022-08-28 13:51 | Emergency (ER) | payer MEDICARE, MEDICAID ==
[~2022-08-28] VITALS: Ht 160 cm; Wt 140.9 kg
[2022-08-28 14:03] VITALS: TEMP 98.4
[2022-08-28] MEDS ORDERED: ACETAMINOPHEN 500 MG TAB PO ONE (14:25)
[2022-08-28 15:55] VITALS: BP 114/74; O2SAT 99
== END 2022-08-28 15:57 | disposition home or self-care (01) ==
LOC: EDBD 13:51 → M ED 13:51
DX: S60.921A Unspecified superficial injury of right hand, initial encounter (principal); S69.91XA Unspecified injury of right wrist, hand and finger(s), initial encounter; F41.9 Anxiety disorder, unspecified; Y04.0XXA Assault by unarmed brawl or fight, initial encounter; Z88.0 Allergy status to penicillin; Z88.1 Allergy status to other antibiotic agents; Z88.2 Allergy status to sulfonamides; Z88.8 Allergy status to other drugs, medicaments and biological substances

== ENCOUNTER → 2022-09-06 | Outpatient (REF) | payer MEDICARE, MEDICAID ==
[2022-09-07 11:23] LABS: BASO % 0.6 % (0.0-1.0); EOS # 0.1 10^3/uL (0.0-0.5); EOS % 1.6 % (0.0-3.0); HEMOGLOBIN 13.8 g/dl (12.0-15.5); LYMPH # 2.2 10^3/uL (1.5-5.0); LYMPH % 32.8 % (24.0-44.0); MEAN CORPUSCULAR HEMOGLOBIN 26.7 pg (27.0-33.0); MEAN CORPUSCULAR HGB CONC 32.1 g/dl (32.0-36.5); MEAN CORPUSCULAR VOLUME 83.2 fl (80.0-96.0); MONO # 0.4 10^3/uL (0.0-0.8); MONO % 6.1 % (2.0-8.0); NEUTROPHILS # 3.9 10^3/uL (1.5-8.5); PLATELET COUNT, AUTOMATED 300 10^3/uL (150-450); RED BLOOD COUNT 5.17 10^6/uL (4.00-5.40); WHITE BLOOD COUNT 6.8 10^3/uL (4.0-10.0)
[2022-09-07 11:34] LABS: HEMOGLOBIN A1c 5.6 % (4.0-6.0)
[2022-09-07 12:00] LABS: ALBUMIN 3.5 G/DL (3.2-5.2); ALKALINE PHOSPHATASE 73 U/L (46-116); ALT/SGPT 28 U/L (7.0-40); AST/SGOT < 8 U/L (<34); BILIRUBIN,TOTAL 0.4 MG/DL (0.3-1.2); BLOOD UREA NITROGEN 15 MG/DL (9-23); CARBON DIOXIDE LEVEL 26 MMOL/L (20-31); CHLORIDE LEVEL 103 MMOL/L (98-107); CHOLESTEROL LEVEL 195 MG/DL (<200); CHOLESTEROL RISK RATIO 5.47 (<5); CORTISOL AM 10.3 UG/DL (4.3-22.4); CREATININE FOR GFR 0.61 MG/DL (0.55-1.30); GLOMERULAR FILTRATION RATE > 60.0 (>60); GLUCOSE, FASTING 127 MG/DL (60-100); HDL CHOLESTEROL 35.6 MG/DL (>40); IRON (FE) 46 UG/DL (50-170); MAGNESIUM LEVEL 1.7 MG/DL (1.8-2.4); NON-HDL-C 159.4 MG/DL; PERCENT SATURATION 12.1 % (13.2-45.0); POTASSIUM SERUM 4.3 MMOL/L (3.5-5.1); SODIUM LEVEL 137 MMOL/L (136-145); TOTAL IRON BINDING CAPACITY 380 UG/DL (250-425); TOTAL PROTEIN 7.2 G/DL (5.7-8.2); TOTAL T3 158.8 NG/DL (60.0-181.0); TRIGLYCERIDES LEVEL 297 MG/DL (<150)
[2022-09-07 12:01] LABS: THYROGLOBULIN ANTIBODY < 15.0 U/ML (<60.0); THYROID STIMULATING HORMONE 2.467 uIU/ML (0.55-4.78); THYROXINE (T4) 10.7 UG/DL (4.5-10.9)
[2022-09-07 12:02] LABS: FERRITIN 44.1 NG/ML (7.3-270.7); FOLLICLE STIMULATING HORMONE 4.5 mIU/ML; PROLACTIN 6.88 NG/ML; VITAMIN B12 LEVEL 597 PG/ML (211-911)
[2022-09-10 12:09] LABS: 17 HYDROXY PROGESTERONE 39 ng/dL (.); DEHYDROEPIANDROSTERONE UNCONJ 105 ng/dL (31-701); LDL DIRECT 128 mg/dL (0-99); TESTOSTERONE FREE (DIRECT) 6.3 pg/mL (0.0-4.2)
== END ==
LOC: M PLALAB 10:15
PROVIDERS: ATTEND Nurse Practitioner Family
DX: E28.2 Polycystic ovarian syndrome (principal); L65.9 Nonscarring hair loss, unspecified; R79.9 Abnormal finding of blood chemistry, unspecified; E04.1 Nontoxic single thyroid nodule; R03.0 Elevated blood-pressure reading, without diagnosis of hypertension; E55.9 Vitamin D deficiency, unspecified; E61.1 Iron deficiency

== ENCOUNTER 2022-12-23 12:00 | Outpatient (RCR) | payer MEDICARE, MEDICAID | END 2022-12-27 | LOC: M PT 12:00 | PROVIDERS: ATTEND Nurse Practitioner Family | DX: M25.561 Pain in right knee (principal) | CPT/HCPCS: 97110; 97162; G0283 ==

== ENCOUNTER 2022-12-24 00:14 | Emergency (ER) | payer MEDICARE, MEDICAID ==
[~2022-12-24] VITALS: Ht 160 cm; Wt 159.0 kg
[2022-12-24 01:10] LABS: BASO % 0.4 % (0.0-1.0); EOS # 0.2 10^3/uL (0.0-0.5); EOS % 2.1 % (0.0-3.0); HEMOGLOBIN 14.6 g/dl (12.0-15.5); LYMPH # 3.1 10^3/uL (1.5-5.0); LYMPH % 34.9 % (24.0-44.0); MEAN CORPUSCULAR HEMOGLOBIN 27.2 pg (27.0-33.0); MEAN CORPUSCULAR HGB CONC 32.4 g/dl (32.0-36.5); MONO # 0.8 10^3/uL (0.0-0.8); MONO % 8.5 % (2.0-8.0); NEUTROPHILS # 4.8 10^3/uL (1.5-8.5); NEUTROPHILS % 53.9 % (36.0-66.0); PLATELET COUNT, AUTOMATED 326 10^3/uL (150-450); RED BLOOD COUNT 5.36 10^6/uL (4.00-5.40)
[2022-12-24 01:37] LABS: ALBUMIN 3.5 G/DL (3.2-5.2); ALKALINE PHOSPHATASE 89 U/L (46-116); ALT/SGPT 52 U/L (7.0-40); AST/SGOT 32 U/L (<34); BILIRUBIN,TOTAL 0.2 MG/DL (0.3-1.2); BLOOD UREA NITROGEN 15 MG/DL (9-23); CALCIUM LEVEL 9.3 MG/DL (8.5-10.1); CARBON DIOXIDE LEVEL 28 MMOL/L (20-31); CHLORIDE LEVEL 103 MMOL/L (98-107); CK-MB VALUE MASS < 1.0 NG/ML (<3.6); CPK CREATINE PHOSPHOKINASE 148 U/L (34-145); CREATININE FOR GFR 0.67 MG/DL (0.55-1.30); GLOMERULAR FILTRATION RATE > 60.0 (>60); GLUCOSE, FASTING 97 MG/DL (60-100); MB/CK RELATIVE INDEX 0.67 (< OR =4); POTASSIUM SERUM 3.8 MMOL/L (3.5-5.1); SODIUM LEVEL 140 MMOL/L (136-145); TOTAL PROTEIN 7.5 G/DL (5.7-8.2)
[2022-12-24 04:48] LABS: CK-MB VALUE MASS 1.1 NG/ML (<3.6)
[2022-12-24 04:49] LABS: MB/CK RELATIVE INDEX 0.93 (< OR =4)
[2022-12-24 07:09] LABS: FREE T4 0.91 NG/DL (0.89-1.76); THYROID STIMULATING HORMONE 4.764 uIU/ML (0.55-4.78)
[2022-12-24 07:24] LABS: HCG, SERUM QUALITATIVE NEGATIVE (NEGATIVE)
[2022-12-24 08:25] VITALS: BP 130/72; TEMP 98.1; O2SAT 98
== END 2022-12-24 09:30 | disposition home or self-care (01) ==
LOC: M ED 00:14
DX: F41.0 Panic disorder [episodic paroxysmal anxiety] (principal); F32.A Depression, unspecified; Z88.0 Allergy status to penicillin; Z88.1 Allergy status to other antibiotic agents; Z88.2 Allergy status to sulfonamides

== ENCOUNTER 2023-03-08 22:50 | Emergency (ER) | payer OTHER, MEDICARE, MEDICAID ==
[~2023-03-08] VITALS: Ht 160 cm; Wt 158.6 kg
[2023-03-09 00:52] VITALS: BP 132/68; TEMP 98.2; O2SAT 99
== END 2023-03-09 00:56 | disposition home or self-care (01) ==
LOC: M ED 22:50
DX: M25.511 Pain in right shoulder (principal); V49.50XA Passenger injured in collision with unspecified motor vehicles in traffic accident, initial encounter; Z88.0 Allergy status to penicillin; Z88.1 Allergy status to other antibiotic agents; Z88.2 Allergy status to sulfonamides

== ENCOUNTER 2023-06-27 16:16 | Emergency (ER) | payer MEDICAID, MEDICARE, OTHER ==
[~2023-06-27] VITALS: Ht 160 cm; Wt 161.6 kg
[~2023-06-27 16:16] MED LIST changes: -LIDO15SO PO; +LIDO15SO8 PO
[2023-06-27 16:18] VITALS: TEMP 97.2; O2SAT 95
[2023-06-27] MEDS ORDERED: PANT20TA6 (16:29)
[2023-06-27] MEDS ORDERED: METF-838 (16:29)
[2023-06-27] MEDS ORDERED: ERGO500029 (16:29)
[2023-06-27] MEDS ORDERED: LEVO75TA4 (16:29)
[2023-06-27 17:27] VITALS: BP 156/84
[2023-06-27 17:35] LABS: BASO # 0.1 10^3/uL (0.0-0.2); BASO % 0.8 % (0.0-1.0); EOS # 0.1 10^3/uL (0.0-0.5); EOS % 1.7 % (0.0-3.0); HEMATOCRIT 45.5 % (36.0-47.0); HEMOGLOBIN 14.7 g/dl (12.0-15.5); LYMPH % 38.9 % (24.0-44.0); MEAN CORPUSCULAR HEMOGLOBIN 26.1 pg (27.0-33.0); MEAN CORPUSCULAR HGB CONC 32.3 g/dl (32.0-36.5); MEAN CORPUSCULAR VOLUME 80.7 fl (80.0-96.0); MONO # 0.7 10^3/uL (0.0-0.8); MONO % 8.5 % (2.0-8.0); NEUTROPHILS # 3.9 10^3/uL (1.5-8.5); PLATELET COUNT, AUTOMATED 367 10^3/uL (150-450); RED BLOOD COUNT 5.64 10^6/uL (4.00-5.40); WHITE BLOOD COUNT 7.8 10^3/uL (4.0-10.0)
[2023-06-27 17:58] LABS: LIPASE 56 U/L (12-53)
[2023-06-27 18:00] LABS: IRON (FE) 64 UG/DL (50-170)
[2023-06-27 18:01] LABS: ALBUMIN 3.5 G/DL (3.2-5.2); ALKALINE PHOSPHATASE 77 U/L (46-116); ALT/SGPT 69 U/L (7.0-40); AST/SGOT 43 U/L (<34); BILIRUBIN,DIRECT < 0.1 MG/DL (<0.4); BILIRUBIN,TOTAL 0.3 MG/DL (0.3-1.2); TOTAL PROTEIN 7.5 G/DL (5.7-8.2)
== END 2023-06-27 18:53 | disposition home or self-care (01) ==
LOC: M ED 16:16
DX: N93.9 Abnormal uterine and vaginal bleeding, unspecified (principal); N83.202 Unspecified ovarian cyst, left side; Z87.42 Personal history of other diseases of the female genital tract; Z88.0 Allergy status to penicillin; Z88.1 Allergy status to other antibiotic agents; Z88.2 Allergy status to sulfonamides; Z88.8 Allergy status to other drugs, medicaments and biological substances; Z79.1 Long term (current) use of non-steroidal anti-inflammatories (NSAID); Z79.890 Hormone replacement therapy; Z79.899 Other long term (current) drug therapy

== ENCOUNTER 2024-09-15 18:05 | Emergency (ER) | payer MEDICARE, SELFPAY ==
[~2024-09-15] VITALS: Ht 160 cm; Wt 167.5 kg
[~2024-09-15 18:05] MED LIST changes: +ERGO500029; +LEVO75TA4; +METF-838; +PANT20TA6
[2024-09-15] MEDS ORDERED: LEVO1TAB40 PO (20:48)
[2024-09-15] MEDS ORDERED: METR-265 PO (20:48)
[2024-09-15 20:57] VITALS: BP 159/92; TEMP 97.4; O2SAT 99
== END 2024-09-15 21:03 | disposition home or self-care (01) ==
LOC: M ED 18:05
DX: K02.9 Dental caries, unspecified (principal); E03.9 Hypothyroidism, unspecified; E28.2 Polycystic ovarian syndrome; Z88.0 Allergy status to penicillin; Z88.1 Allergy status to other antibiotic agents; Z88.2 Allergy status to sulfonamides; Z79.84 Long term (current) use of oral hypoglycemic drugs; Z79.899 Other long term (current) drug therapy

== ENCOUNTER 2024-12-20 04:13 | Emergency (ER) | payer SELFPAY ==
[~2024-12-20] VITALS: Ht 160 cm; Wt 166.1 kg
[~2024-12-20 04:13] MED LIST changes: -IBUP-1022 PO; +IBUP600T42 PO; +LEVO1TAB40 PO; +METR-265 PO
[2024-12-20 05:47] LABS: BASO # 0.1 10^3/uL (0.0-0.2); BASO % 0.5 % (0.0-1.0); EOS # 0.2 10^3/uL (0.0-0.5); EOS % 2.0 % (0.0-3.0); LYMPH # 2.3 10^3/uL (1.5-5.0); LYMPH % 22.0 % (24.0-44.0); MONO # 0.8 10^3/uL (0.0-0.8); MONO % 7.4 % (2.0-8.0); NEUTROPHILS # 6.9 10^3/uL (1.5-8.5); NEUTROPHILS % 67.7 % (36.0-66.0); PLATELET COUNT, AUTOMATED 328 10^3/uL (150-450)
[2024-12-20 06:11] LABS: ALT/SGPT 66 U/L (7.0-40); AST/SGOT 42 U/L (<34); CALCIUM LEVEL 9.3 MG/DL (8.5-10.1); CARBON DIOXIDE LEVEL 27 MMOL/L (20-31); CHLORIDE LEVEL 104 MMOL/L (98-107); CREATININE FOR GFR 0.68 MG/DL (0.55-1.30); GLOMERULAR FILTRATION RATE > 90.0 (>60); POTASSIUM SERUM 4.1 MMOL/L (3.5-5.1); SODIUM LEVEL 142 MMOL/L (136-145)
[2024-12-20 06:13] LABS: HCG, SERUM QUALITATIVE NEGATIVE (NEGATIVE)
[2024-12-20] MEDS: ONDANSETRON 4MG/2ML VIAL IV ONE (06:45)
[2024-12-20] MEDS: NS (Normal Saline) 0.9% 1,000 ML IV ONE (06:46)
[2024-12-20] MEDS: PANTOPRAZOLE 40MG VIAL IV ONE (06:46)
[2024-12-20] MEDS: SUCRALFATE 1 GM TAB PO ONE (06:46)
[2024-12-20] MEDS ORDERED: ISOVUE-370 76% 100 ML VIAL As Ordered ONE (07:08)
[2024-12-20 07:49] VITALS: TEMP 97.5
[2024-12-20 08:31] LABS: KETONE, URINE AUTO RFX NEGATIVE (NEGATIVE); LEUKOCYTE ESTERASE UR AUTO RFX NEGATIVE (NEGATIVE); MUCUS, URINE RFX SMALL (NEGATIVE); NITRITE, URINE AUTO RFX NEGATIVE (NEGATIVE); RBC, URINE AUTO RFX 0 /HPF (0-3); SQUAM EPITHELIAL CELL UR AURFX 1 /HPF (0-6); WBC, URINE AUTO RFX 1 /HPF (0-3)
[2024-12-20] MEDS ORDERED: OMEP40CA4 PO (09:00)
[2024-12-20] MEDS ORDERED: CARA1TAB6 PO (09:00)
[2024-12-20 09:05] VITALS: BP 134/69; O2SAT 98
== END 2024-12-20 09:26 | disposition home or self-care (01) ==
LOC: M ED 04:13
DX: R10.13 Epigastric pain (principal); N83.202 Unspecified ovarian cyst, left side; R16.0 Hepatomegaly, not elsewhere classified; D44.12 Neoplasm of uncertain behavior of left adrenal gland; K42.9 Umbilical hernia without obstruction or gangrene; K44.9 Diaphragmatic hernia without obstruction or gangrene; F32.A Depression, unspecified; F41.9 Anxiety disorder, unspecified; Z79.899 Other long term (current) drug therapy; Z79.4 Long term (current) use of insulin; Z88.0 Allergy status to penicillin; Z88.1 Allergy status to other antibiotic agents; Z88.2 Allergy status to sulfonamides
CPT/HCPCS: 74177; 80048; 80076; 81001; 83690; 84703; 85025; 96361; 96374; 96375; 99284; J2405; J2470; Q9967

== ENCOUNTER 2025-02-09 00:23 | Emergency (ER) | payer SELFPAY ==
[~2025-02-09] VITALS: Ht 160 cm; Wt 168.3 kg
[~2025-02-09 00:23] MED LIST changes: +CARA1TAB6 PO; +OMEP40CA4 PO
[2025-02-09 00:27] VITALS: TEMP 98
[2025-02-09 01:16] VITALS: BP 177/116
[2025-02-09] MEDS ORDERED: DOXY-441 PO (01:39)
[2025-02-09] MEDS: DOXYCYCLINE HYCLATE 100 MG TABLET PO ONE (01:52)
[2025-02-09 01:53] VITALS: O2SAT 98
== END 2025-02-09 02:30 | disposition home or self-care (01) ==
LOC: M ED 00:23
DX: K08.89 Other specified disorders of teeth and supporting structures (principal); K03.81 Cracked tooth; E28.2 Polycystic ovarian syndrome; D44.0 Neoplasm of uncertain behavior of thyroid gland; K05.6 Periodontal disease, unspecified; Z88.0 Allergy status to penicillin; Z88.1 Allergy status to other antibiotic agents; Z88.8 Allergy status to other drugs, medicaments and biological substances; Z79.84 Long term (current) use of oral hypoglycemic drugs; Z79.899 Other long term (current) drug therapy

== ENCOUNTER 2025-02-13 10:17 | Emergency (ER) | payer SELFPAY ==
[~2025-02-13] VITALS: Ht 160 cm; Wt 164.0 kg
[~2025-02-13 10:17] MED LIST changes: +DOXY-441 PO
[2025-02-13 10:20] VITALS: TEMP 97.6
[2025-02-13 12:23] LABS: BASO # 0.1 10^3/uL (0.0-0.2); BASO % 0.5 % (0.0-1.0); EOS # 0.3 10^3/uL (0.0-0.5); EOS % 2.7 % (0.0-3.0); LYMPH # 3.2 10^3/uL (1.5-5.0); LYMPH % 32.7 % (24.0-44.0); MONO # 0.8 10^3/uL (0.0-0.8); MONO % 8.6 % (2.0-8.0); NEUTROPHILS # 5.3 10^3/uL (1.5-8.5); NEUTROPHILS % 55.1 % (36.0-66.0); PLATELET COUNT, AUTOMATED 372 10^3/uL (150-450)
[2025-02-13 12:48] LABS: CK-MB VALUE MASS 2.9 NG/ML (<3.6)
[2025-02-13 12:50] LABS: INR 0.99
[2025-02-13 12:51] LABS: ALT/SGPT 75 U/L (7.0-40); AST/SGOT 49 U/L (<34); CALCIUM LEVEL 8.9 MG/DL (8.5-10.1); CARBON DIOXIDE LEVEL 27 MMOL/L (20-31); CHLORIDE LEVEL 102 MMOL/L (98-107); CREATININE FOR GFR 0.67 MG/DL (0.55-1.30); GLOMERULAR FILTRATION RATE > 90.0 (>60); POTASSIUM SERUM 3.8 MMOL/L (3.5-5.1); SODIUM LEVEL 139 MMOL/L (136-145)
[2025-02-13 12:58] LABS: CPK CREATINE PHOSPHOKINASE 170 U/L (34-145); MB/CK RELATIVE INDEX 1.70 (< OR =4)
[2025-02-13 13:01] LABS: HCG, SERUM QUALITATIVE NEGATIVE (NEGATIVE)
[2025-02-13 13:45] VITALS: BP 138/82; O2SAT 98
== END 2025-02-13 14:00 | disposition home or self-care (01) ==
LOC: M ED 10:17
DX: R07.9 Chest pain, unspecified (principal); R00.2 Palpitations; Z79.4 Long term (current) use of insulin; Z79.899 Other long term (current) drug therapy; Z88.0 Allergy status to penicillin; Z88.2 Allergy status to sulfonamides; Z88.8 Allergy status to other drugs, medicaments and biological substances; Z88.1 Allergy status to other antibiotic agents